=== PATIENT | male | born 1990 | race Caucasian/White ===

== ENCOUNTER 2017-10-07 01:50 | Day surgery (SDC) | payer OTHER ==
[2017-10-07] VITALS (7 sets, daily range): BP systolic 115–124; BP diastolic 79–88
--- NOTE | 2017-10-07 03:05 | ER Report ---
History and Physical Time Seen By MD: 03:04 Hx. of Stated Complaint: Pt feels like he has "gas." Pt complains of right sided abdominal pain. No N/V/D. HPI/ROS CHIEF COMPLAINT: abdominal pain HISTORY OF PRESENT ILLNESS: This is a 26 year old male. He is having abdominal pain. Started tonight about 2230 hours. Periumbilical initially, but now moved to the right lower abdomen. No diarrhea, constipation, or blood in the stools. No nausea. No problems with urination. Brainerd like he might have gas, and tried simethicone, but no change. No fevers or chills. No history of abdominal problems or surgeries. He was worried about the pain going to the right lower abdomen and is worried about appendicitis. Allergies: Coded Allergies: No Known Drug Allergies (Unverified , 10/07/17) Home Meds Active Scripts Docusate Sodium (COLACE) 100 Mg Capsule, 1 CAP PO BID, #30 CAP 0 Refills TAKE WITH A FULL GLASS OF WATER Prov:YASEMIN CATALAN MD 10/07/17 Oxycodone Hcl/Acet 5/325 Mg (ENDOCET 5-325 TABLET) 1 Each Tablet, 1-2 TAB PO Q4H Y for PAIN, #30 TAB 0 Refills Prov:YASEMIN CATALAN MD 10/07/17 Past Medical/Surgical History L5-S1 herniated disc Reviewed Nurses Notes: Yes Hx Substance Use Disorder: No Hx Alcohol Use: No Constitutional Vital Sign - Last 24 Hours 10/07/17 10/07/17 10/07/17 10/07/17 01:57 01:57 02:00 03:05 Temp 98.4 Pulse 81 74 Resp 14 B/P (MAP) 134/85 (101) 134/85 131/79 (96) Pulse Ox 98 97 O2 Delivery Room Air 10/07/17 10/07/17 10/07/17 10/07/17 03:35 03:40 04:10 04:25 Pulse 63 71 78 Pulse Ox 98 98 98 96 10/07/17 10/07/17 10/07/17 04:30 05:25 05:30 Pulse 79 83 B/P (MAP) 118/84 (95) Pulse Ox 96 96 Physical Exam General Appearance: The patient is alert. No acute distress, but is a little anxious. Eyes: Pupils are equal, round. No pallor, injection or icterus. ENT: Mucous membranes are moist.. Respiratory: Lungs are clear to auscultation. Cardiovascular: Regular rate and rhythm. No murmurs, gallops or rubs. Normal capillary refill. Gastrointestinal: Abdomen is soft, but tender in the periumbilical are, but more tender in right lower abdomen. Guarding but no rebound. No masses or organomegaly. Normal active bowel sounds. No costovertebral angle tenderness with percussion. Neurological: Alert and oriented x3. No focal neurologic deficits Skin: Warm and dry. DIFFERENTIAL DIAGNOSIS: After history and physical exam, differential diagnosis was considered for abdominal pain including but not limited to appendicitis, cholecystitis, gastritis and urinary tract infection. Medical Decision Making Data Points Result Diagram: 10/07/17 0320 10/07/17 0320 Laboratory Hematology Test 10/07/17 02:53 10/07/17 03:20 Urine Color Yellow Urine Clarity Clear Urine pH 5.0 pH (4.8-9.5) Urine Specific [place] 1.017 Urine Protein Negative mg/dL (NEGATIVE) Urine Glucose (UA) Negative mg/dL (NEGATIVE) Urine Ketones Negative mg/dL (NEGATIVE) Urine Blood Moderate (NEGATIVE) Urine Nitrite Negative (NEGATIVE) Urine Bilirubin Negative (NEGATIVE) Urine Urobilinogen Negative mg/dL (0.2-1.9) Urine Leukocyte Esterase Negative (NEGATIVE) Urine RBC <1 /HPF (0-2/HPF) Urine WBC None /HPF (0-5/HPF) Urine Squamous Epithelial Cells None /LPF (</=FEW) Urine Transitional Epithelial Cells Few /LPF (NONE-FEW) Urine Bacteria Negative /HPF (NONE-FEW) Urine Mucus None /HPF (NONE-FEW) Red Blood Count 5.78 M/uL (4.00-5.60) Mean Corpuscular Volume 88.4 fL (80.0-96.0) Mean Corpuscular Hemoglobin 30.0 pg (26.0-33.0) Mean Corpuscular Hemoglobin Concent 33.9 g/dL (32.0-36.0) Red Cell Distribution Width 13.6 % (11.5-14.5) Mean Platelet Volume 8.6 fL (7.2-11.1) Neutrophils (%) (Auto) 86.6 % (39.4-72.5) Lymphocytes (%) (Auto) 8.2 % (17.6-49.6) Monocytes (%) (Auto) 4.3 % (4.1-12.4) Eosinophils (%) (Auto) 0.2 % (0.4-6.7) Basophils (%) (Auto) 0.7 % (0.3-1.4) Nucleated RBC Relative Count (auto) 0.0 /100WBC Neutrophils # (Auto) 15.8 K/uL (2.0-7.4) Lymphocytes # (Auto) 1.5 K/uL (1.3-3.6) Monocytes # (Auto) 0.8 K/uL (0.3-1.0) Eosinophils # (Auto) 0.0 K/uL (0.0-0.5) Basophils # (Auto) 0.1 K/uL (0.0-0.1) Nucleated RBC Absolute Count (auto) 0.00 K/uL Sodium Level 138 mmol/L (137-145) Potassium Level 4.3 mmol/L (3.5-5.0) Chloride Level 104 mmol/L (98-107) Carbon Dioxide Level 24 mmol/L (22-30) Blood Urea Nitrogen 17 mg/dl (9-21) Creatinine 0.90 mg/dl (0.66-1.25) Glomerular Filtration Rate Calc > 60.0 Random Glucose 115 mg/dl (75-110) Lactate 1.4 mmol/L (0.7-2.1) Calcium Level 9.6 mg/dl (8.4-10.2) Total Bilirubin 0.4 mg/dl (0.2-1.3) Aspartate Amino Transf (AST/SGOT) 39 U/L (0-35) Alanine Aminotransferase (ALT/SGPT) 60 U/L (0-56) Alkaline Phosphatase 65 U/L (0-126) C-Reactive Protein 0.7 mg/dl (<1.0) Total Protein 6.6 gm/dl (6.3-8.2) Albumin 3.8 g/dl (3.5-5.0) Amylase Level 39 U/L (0-110) Lipase 99 U/L (23-300) Chemistry Test 10/07/17 02:53 10/07/17 03:20 Urine Color Yellow Urine Clarity Clear Urine pH 5.0 pH (4.8-9.5) Urine Specific [place] 1.017 Urine Protein Negative mg/dL (NEGATIVE) Urine Glucose (UA) Negative mg/dL (NEGATIVE) Urine Ketones Negative mg/dL (NEGATIVE) Urine Blood Moderate (NEGATIVE) Urine Nitrite Negative (NEGATIVE) Urine Bilirubin Negative (NEGATIVE) Urine Urobilinogen Negative mg/dL (0.2-1.9) Urine Leukocyte Esterase Negative (NEGATIVE) Urine RBC <1 /HPF (0-2/HPF) Urine WBC None /HPF (0-5/HPF) Urine Squamous Epithelial Cells None /LPF (</=FEW) Urine Transitional Epithelial Cells Few /LPF (NONE-FEW) Urine Bacteria Negative /HPF (NONE-FEW) Urine Mucus None /HPF (NONE-FEW) White Blood Count 18.2 k/uL (4.5-11.0) Red Blood Count 5.78 M/uL (4.00-5.60) Hemoglobin 17.3 g/dL (14.0-18.0) Hematocrit 51.1 % (42.0-52.0) Mean Corpuscular Volume 88.4 fL (80.0-96.0) Mean Corpuscular Hemoglobin 30.0 pg (26.0-33.0) Mean Corpuscular Hemoglobin Concent 33.9 g/dL (32.0-36.0) Red Cell Distribution Width 13.6 % (11.5-14.5) Platelet Count 223 K/uL (150-450) Mean Platelet Volume 8.6 fL (7.2-11.1) Neutrophils (%) (Auto) 86.6 % (39.4-72.5) Lymphocytes (%) (Auto) 8.2 % (17.6-49.6) Monocytes (%) (Auto) 4.3 % (4.1-12.4) Eosinophils (%) (Auto) 0.2 % (0.4-6.7) Basophils (%) (Auto) 0.7 % (0.3-1.4) Nucleated RBC Relative Count (auto) 0.0 /100WBC Neutrophils # (Auto) 15.8 K/uL (2.0-7.4) Lymphocytes # (Auto) 1.5 K/uL (1.3-3.6) Monocytes # (Auto) 0.8 K/uL (0.3-1.0) Eosinophils # (Auto) 0.0 K/uL (0.0-0.5) Basophils # (Auto) 0.1 K/uL (0.0-0.1) Nucleated RBC Absolute Count (auto) 0.00 K/uL Glomerular Filtration Rate Calc > 60.0 Lactate 1.4 mmol/L (0.7-2.1) Calcium Level 9.6 mg/dl (8.4-10.2) Total Bilirubin 0.4 mg/dl (0.2-1.3) Aspartate Amino Transf (AST/SGOT) 39 U/L (0-35) Alanine Aminotransferase (ALT/SGPT) 60 U/L (0-56) Alkaline Phosphatase 65 U/L (0-126) C-Reactive Protein 0.7 mg/dl (<1.0) Total Protein 6.6 gm/dl (6.3-8.2) Albumin 3.8 g/dl (3.5-5.0) Amylase Level 39 U/L (0-110) Lipase 99 U/L (23-300) Urinalysis Test 10/07/17 02:53 Urine Color Yellow Urine Clarity Clear Urine pH 5.0 pH (4.8-9.5) Urine Specific [place] 1.017 Urine Protein Negative mg/dL (NEGATIVE) Urine Glucose (UA) Negative mg/dL (NEGATIVE) Urine Ketones Negative mg/dL (NEGATIVE) Urine Blood Moderate (NEGATIVE) Urine Nitrite Negative (NEGATIVE) Urine Bilirubin Negative (NEGATIVE) Urine Urobilinogen Negative mg/dL (0.2-1.9) Urine Leukocyte Esterase Negative (NEGATIVE) Urine RBC <1 /HPF (0-2/HPF) Urine WBC None /HPF (0-5/HPF) Urine Squamous Epithelial Cells None /LPF (</=FEW) Urine Transitional Epithelial Cells Few /LPF (NONE-FEW) Urine Bacteria Negative /HPF (NONE-FEW) Urine Mucus None /HPF (NONE-FEW) EKG/Imaging Imaging CT of the abdomen and pelvis with contrast: Indication: Right lower quadrant pain. Technique: Helical CT was performed through the abdomen and pelvis following IV contrast enhancement with 75 cc of Isovue-370. Multiplanar reconstructions are reviewed. One of the following dose optimization techniques was utilized in the performance of this exam: Automated exposure control; adjustment of the mA and/ or kV according to the patient's size; or use of an iterative reconstruction technique. Specific details can be referenced in the facility's radiology CT exam operational policy. Comparison: None. Lower lung saucedo: No focal parenchymal or pleural abnormality is identified. Liver: Normal in size, shape, and density. There is uniform enhancement of the venous structures. Gallbladder/biliary tree: The gallbladder appears contracted, but otherwise unremarkable. The bile ducts are normal in caliber. Pancreas: Normal in size, shape, and density. Spleen: Normal in size, shape, and density. Adrenal glands: Within normal limits. Kidneys/urinary bladder: The kidneys are normal in size, shape, and density. There are no signs of obstructive uropathy. The bladder appears homogeneous and unremarkable. Intestinal structures: The appendix appears dilated and inflamed, measuring 8 mm in diameter. There are inflammatory changes in the mesentery surrounding the appendix. The findings are consistent with acute appendicitis. There are no signs of pathologic fluid collection. There is minimal free fluid in the pelvis. The intestinal structures are otherwise unremarkable. Pelvis: Unremarkable. Aorta and vascular structures: Within normal limits. Ascites or fluid collections: There is minimal free fluid in the pelvis. Skeletal structures: Intact and unremarkable. Impression: Findings consistent with acute appendicitis. A preliminary report was called to Dr. Barrow at [facility] at 0420 hours. Report Dictated By: Rip Lux MD at 10/07/2017 4:13 AM ED Course/Re-evaluation Clinical Indication for ER IV: Hydration, IV Access ED Course The patients labs showed an elevated white blood cell count with left shift. Normal metabolic panel, CRP and lactated. Normal urinalysis. CT scan consistent with appendicitis. On re-evaluation, the patient has less periumbilical pain and more pain in the right lower abdomen. He still is okay without taking any pain medicines. I let him know the diagnosis and contacted our general surgeon , Dr. Catalan, who will see him later this morning for surgery. We will keep him NPO and provide Ertapenem 1g IV at this time. Let the patient know that we can provide pain medicine or nausea medicine should he feel he needs it. Decision to Disposition Date: Oct 07, 2017 Decision to Disposition Time: 04:39 Depart Departure Latest Vital Signs Vital Signs Date Time Temp Pulse Resp B/P (MAP) Pulse Ox O2 Delivery O2 Flow Rate FiO2 10/07/17 05:30 83 96 10/07/17 04:30 118/84 (95) 10/07/17 01:57 98.4 14 Room Air Impression: Primary Impression: Appendicitis Condition: Condition Unchanged Disposition: ADMIT FROM ER TO OR New Scripts Docusate Sodium (COLACE) 100 Mg Capsule 1 CAP PO BID, #30 CAP 0 Refills TAKE WITH A FULL GLASS OF WATER Prov: YASEMIN CATALAN MD 10/07/17 Oxycodone Hcl/Acet 5/325 Mg (ENDOCET 5-325 TABLET) 1 Each Tablet 1-2 TAB PO Q4H Y for PAIN, #30 TAB 0 Refills Prov: YASEMIN CATALAN MD 10/07/17 Problem Qualifiers Primary Impression: Appendicitis Appendicitis type: acute appendicitis Acute appendicitis type: with localized peritonitis Qualified Codes: K35.3 - Acute appendicitis with localized peritonitis KOBY BARROW MD Oct 07, 2017 03:05
[2017-10-07] MEDS ORDERED: IOPAMIDOL 76% 75 ML INFUS BTL 75 ML ONE (03:26)
[2017-10-07 03:36] LABS: PLATELET COUNT, AUTOMATED 223 K/uL (150-450)
--- NOTE | 2017-10-07 04:30 | RADIOLOGY IMAGING REPORT ---
FACILITY: [facility] PATIENT NAME: Ayo Styles : 1990 MR: [id number] V: [id number] EXAM DATE: ORDERING PHYSICIAN: KOBY VEGA TECHNOLOGIST: Location: [facility] Patient: Ayo Styles : 1990 Visit/Account:[id number] Date of Sevice: 10/07/2017 CT of the abdomen and pelvis with contrast: Indication: Right lower quadrant pain. Technique: Helical CT was performed through the abdomen and pelvis following IV contrast enhancement with 75 cc of Isovue-370. Multiplanar reconstructions are reviewed. One of the following dose optimization techniques was utilized in the performance of this exam: Autom ated exposure control; adjustment of the mA and/or kV according to the patient's size; or use of an i terative reconstruction technique. Specific details can be referenced in the facility's radiology C T exam operational policy. Comparison: None. Lower lung saucedo: No focal parenchymal or pleural abnormality is identified. Liver: Normal in size, shape, and density. There is uniform enhancement of the venous structures. Gallbladder/biliary tree: The gallbladder appears contracted, but otherwise unremarkable. The bile du cts are normal in caliber. Pancreas: Normal in size, shape, and density. Spleen: Normal in size, shape, and density. Adrenal glands: Within normal limits. Kidneys/urinary bladder: The kidneys are normal in size, shape, and density. There are no signs of ob structive uropathy. The bladder appears homogeneous and unremarkable. Intestinal structures: The appendix appears dilated and inflamed, measuring 8 mm in diameter. There a re inflammatory changes in the mesentery surrounding the appendix. The findings are consistent with a cute appendicitis. There are no signs of pathologic fluid collection. There is minimal free fluid in the pelvis. The intestinal structures are otherwise unremarkable. Pelvis: Unremarkable. Aorta and vascular structures: Within normal limits. Ascites or fluid collections: There is minimal free fluid in the pelvis. Skeletal structures: Intact and unremarkable. Impression: Findings consistent with acute appendicitis. A preliminary report was called to Dr. Vega at [facility] at 0420 hours. Report Dictated By: Rip Lux MD at 10/07/2017 4:13 AM Report E-Signed By: Rip Lux MD at 10/07/2017 4:26 AM WSN:[id number]
[2017-10-07] MEDS ORDERED: ERTAPENEM(*) 1 GM VIAL 1 GM in NS(*) 0.9% 100 ML ADDVANT BAG 100 ML IVPB ONE (04:50)
--- NOTE | 2017-10-07 07:14 | Gen Surgery History & Physical ---
History of Present Illness Chief Complaint Right lower quadrant abdominal pain History of Present Illness 26-year-old otherwise healthy male presents to the emergency department after developing abdominal pain that started at 10:00 last night, approximately 9 hours ago from my evaluation. It started periumbilically and migrated to the right lower quadrant shortly after his CT scan. No nausea or vomiting, no fevers or chills, no constipation or diarrhea. White blood cell count was found be 18,[address] was consistent with appendicitis. I have been consulted for further evaluation and management. History Home Meds No Active Prescriptions or Reported Meds Allergies: Coded Allergies: No Known Drug Allergies (Unverified , 10/07/17) Review of Systems All Systems Reviewed/Normal: Yes, Except as Noted Gastrointestinal: Abdominal Pain Exam General Appearance: Alert, Awake, No Acute Distress, Afebrile Neuro: No Gross deficits Eyes: PERRLA GI: Other (soft, mild right lower quadrant tenderness to palpation, not much peritoneal irritation) Extremities: Warm, Perfused Medical Decision Making Data Points Result Diagram: 10/07/17 0320 10/07/17 0320 Assessment and Plan Problems: (1) Appendicitis Status: Acute Assessment & Plan: Admit, nothing by mouth, IV fluids, IV antibiotics, 2 OR for lap appendectomy. I have explained the plan and the procedure to the patient and his parents in great detail as well as the alternatives and the risks and expected recovery. They indicate their understanding of this discussion and their questions have been answered. They would like to proceed with this plan including surgery. Condition Stable Time Spent: < 30 min Venous Thromboembolism VTE Risk Physician Assess for VTE Risk: Yes Patient's VTE Risk: Low VTE Diagnostic Test 2 Days Prior to Admit: No Antithrombotics Is Pt On Any Antithrombotics?: No Problem Qualifiers (1) Appendicitis: Appendicitis type: acute appendicitis Acute appendicitis type: with localized peritonitis Qualified Codes: K35.3 - Acute appendicitis with localized peritonitis YASEMIN CATALAN MD Oct 07, 2017 07:14
[2017-10-07] MEDS ORDERED: FAMOTIDINE(*) 20MG/50ML PREMIX 50 ML IVPB ONE (07:20)
[2017-10-07] MEDS ORDERED: ROPIVACAINE 0.5% 20 ML VIAL ONE (07:43)
[2017-10-07] MEDS ORDERED: MIDAZOLAM 2 MG/2 ML VIAL ONE (07:49)
[2017-10-07] MEDS ORDERED: PROPOFOL EMUL(*) 10MG/ML 20 ML 20 ML ONE (07:49)
[2017-10-07] MEDS ORDERED: ONDANSETRON 4 MG/2 ML VIAL ONE (07:49)
[2017-10-07] MEDS ORDERED: fentaNYL CITR 100 MCG/2 ML AMP ONE ×2 (07:49→09:13)
[2017-10-07] MEDS ORDERED: DEXAMETHASONE SOD PHOS 10MG/ML ONE (07:49)
[2017-10-07] MEDS ORDERED: ROCURONIUM BROM 10 MG/ML 10 ML ONE (07:49)
[2017-10-07] MEDS ORDERED: LIDOCAINE MPF 1% 5 ML VIAL ONE (07:49)
[2017-10-07] MEDS ORDERED: SUCCINYLCHOL CHL 200MG/10ML VL ONE (07:52)
[2017-10-07] MEDS ORDERED: METOPROLOL TART 5 MG/5 ML VIAL ONE (08:33)
[2017-10-07] MEDS ORDERED: OXYC-854 PO (08:56)
[2017-10-07] MEDS ORDERED: DOCU-416 PO (08:56)
--- NOTE | 2017-10-07 08:59 | Short(Outpt) Discharge Summary ---
Discharge Summary Reason for Hosp/Final Diag: (1) Appendicitis Status: Acute Hospital Course & Plan: Admit, nothing by mouth, IV fluids, IV antibiotics, 2 OR for lap appendectomy. I have explained the plan and the procedure to the patient and his parents in great detail as well as the alternatives and the risks and expected recovery. They indicate their understanding of this discussion and their questions have been answered. They would like to proceed with this plan including surgery. Lap appy completed without problems. It was early appendicitis. Will d/c to home from PACU. Departure Discharge to: Home, Self Care Discharge Instructions Home Meds Active Scripts Docusate Sodium (COLACE) 100 Mg Capsule, 1 CAP PO BID, #30 CAP 0 Refills TAKE WITH A FULL GLASS OF WATER Prov:YASEMIN CATALAN MD 10/07/17 Oxycodone Hcl/Acet 5/325 Mg (ENDOCET 5-325 TABLET) 1 Each Tablet, 1-2 TAB PO Q4H Y for PAIN, #30 TAB 0 Refills Prov:YASEMIN CATALAN MD 10/07/17 Follow up Referrals: General Surgery - 10/22/17 @ Surgery, General with Yasemin Catalan Md You have a follow up appointment scheduled with Dr. Catalan on 10/22/17, at 9:45am. Diet: Regular Activity: As Tolerated Special Instructions: You may remove the white surgical dressings on 10/09/17, then you can shower. After showering, leave the incisions open to air but leave the steristrips in place until they fall off on their own. Do not immerse the incisions for 2 weeks. Problem Qualifiers (1) Appendicitis: Appendicitis type: acute appendicitis Acute appendicitis type: with localized peritonitis Qualified Codes: K35.3 - Acute appendicitis with localized peritonitis YASEMIN CATALAN MD Oct 07, 2017 08:59
--- NOTE | 2017-10-07 09:11 | Post Operative Progress Note ---
Post Operative Progress Note Date: Oct 07, 2017 Time: 08:59 Surgeon: Fern Dictation number: [id number] Anesthesia: GETA by Dr. Garcia Pre-Op Diagnosis: Acute appendicitis Post-Op Diagnosis: BERTA Findings: Appendicitis, no purulence, gangrene, perforation, or abscess Procedure(s): Lap appy Specimen Removed:(May be N/A): Appendix Complications: None Fluids: See anesthesia record Estimated Blood Loss: Minimal Date OP Note Dictated: Oct 07, 2017 Time OP Note Dictated: 09:00 YASEMIN CATALAN MD Oct 07, 2017 09:11
--- NOTE | 2017-10-09 05:00 | OPERATIVE REPORT 1 ---
EVENT DATE: October 07, 2017 SURGEON: Markel Shirley MD ANESTHESIOLOGIST: Anders Garcia MD ANESTHESIA: General endotracheal VPREOPERATIVE DIAGNOSIS Acute appendicitis. POSTOPERATIVE DIAGNOSIS Acute appendicitis. PROCEDURE PERFORMED Laparoscopic appendectomy. COMPLICATIONS None. CONDITION Stable. ESTIMATED BLOOD LOSS Minimal. SPECIMEN Appendix INDICATIONS This is a 26-year-old gentleman who presents to the emergency room with about an 8 or 9 hour history of right lower quadrant abdominal pain. CT was consistent with appendicitis. I was consulted for further evaluation and management. DESCRIPTION OF PROCEDURE The patient was brought to the operating room, placed supine on the operating table. General endotracheal anesthesia was administered, and his abdomen was prepped and draped in a sterile fashion. Timeout was completed, and I injected the infraumbilical skin with 0.5% bupivacaine plain. I made a curvilinear incision in the infraumbilical rim and dissected through the dermis and subcutaneous fat. I identified the underlying midline fascia and made a vertical incision in the midline fascia and grasped the fascial edges with the Justina clamps and retracted the fascia toward the ceiling and then bluntly entered the peritoneal cavity with my finger. I placed two interrupted 0 Vicryl sutures transversely through the vertical defect and inserted a 12 mm Vianey type port through this wound and secured in place with sutures. I insufflated the abdomen to a pressure of 15 mmHg and inserted a 5 mm 30-degree scope through this port. Under direct visualization, I placed a 5 mm port in the suprapubic midline and a second 5 mm port in the left lower quadrant. The patient was placed in Trendelenburg and planed toward his left. I removed the viscera from the right lower quadrant, and the appendix was readily visualized and appeared grossly inflamed. I divided the mesoappendix with the harmonic scalpel and then divided the base of the appendix flush with the cecum with an endo JUSTEN stapler with a blue load. I then placed the appendix in a surgical specimen retrieval bag and removed from the abdomen through the umbilical port site. I then irrigated and dried the right lower quadrant and inspected the divided mesoappendix and staple line for any bleeding. There was none, and the staple line looked flush with the cecum and did not interfere with the terminal ileum. I then removed the 5 mm port, inspected the peritoneal surfaces for bleeding and there was none. I removed the camera, desufflated the abdomen, removed the umbilical port, and then placed another 0 Vicryl figure-of-8 suture in the midline fascia and then tied all three of these down with good reapproximation of the fascial edges. The skin at each port site was closed with 4-0 Monocryl subcuticular suture. The skin was cleaned and dried, and Steri-Strips were applied, followed by sterile surgical dressings. The patient was awakened and extubated in the operating room and transported to the recovery room in stable condition, having tolerated the procedure without any apparent problems. MELANIE
== END 2017-10-07 10:00 | disposition home or self-care (01) ==
LOC: ER 03:15 → OR 05:42
PROVIDERS: ATTEND Surgery
DX: K35.3 Acute appendicitis with localized peritonitis (principal)
CPT/HCPCS: 36415; 44970; 74177; 81001; 82150; 83605; 83690; 85025; 86140; 88304; 96365; 96367; 99285; J0330; J1100; J1335; J2001; J2250; J2405; J2704; J2795; J3010; J3490; J7050; Q9967; 82040; 82247; 82310; 82374; 82435; 82565; 82947; 84075; 84132; 84155; 84295; 84450; 84460; 84520